=== PATIENT | female | born 1955 | race Caucasian/White ===

== ENCOUNTER 2020-12-18 07:05 | Outpatient (REF) | payer OTHER, SELFPAY ==
[2020-12-18 11:24] LABS: MANUAL DIFF FLAG NO
[2020-12-18 11:40] LABS: Basophils Percent Auto 0.8 % (0-2); Eosinophils Absolute Auto 0.2 X10*3/uL (0.0-0.4); Hematocrit 39.6 % (37-47); Hemoglobin 12.7 g/dl (12.0-16.0); Imm Gran Abs Auto 0.02 X10*3/uL (0.00-0.03); Imm Gran Pct Auto 0.4 % (0.0-0.4); Lymphocytes Absolute Auto 1.9 X10*3/uL (1.2-4.9); Mean Corpuscular HGB Conc 32.1 g/dl (31.0-35.0); Mean Corpuscular Hemoglobin 29.7 pg (27.0-33.0); Mean Corpuscular Volume 92.7 fL (80-98); Monocytes Absolute Auto 0.4 X10*3/uL (0.1-1.2); Monocytes Percent Auto 8.1 % (2-11); Neutrophils Absolute Auto 2.8 X10*3/uL (2.0-8.3); Neutrophils Percent Auto 51.7 % (45-73); Platelet Count 192 X10*3/uL (160-400); Red Blood Count 4.27 X10*6/uL (4.20-5.50); Red Cell Distribution Width 13.3 % (11.0-16.0); White Blood Count 5.3 X10*3/uL (4.8-10.8)
[2020-12-18 11:57] LABS: Alanine Aminotransferase 19 U/L (0-31); Anion Gap 11 (12-20); Aspartate Amino Transferase 22 U/L (5-31); Blood Urea Nitrogen 17 mg/dL (9-16); Calcium 9.4 mg/dL (8.4-10.2); Carbon Dioxide 27 mmol/L (22-29); Chloride 108 mmol/L (96-108); Cholesterol 196 mg/dL; Estimated Glomerular Filt Rate > 60; Glucose Fasting 74 mg/dL (60-99); HDL Cholesterol 58 mg/dL; LDL Cholesterol Calculated 121 mg/dl; Potassium 4.3 mmol/L (3.3-5.1); Sodium 142 mmol/L (135-145); Triglycerides 88 mg/dL
[2020-12-18 12:05] LABS: Vitamin D 25-OH Total 38.9 ng/mL (>30)
== END 2020-12-18 07:06 | disposition home or self-care (01) ==
LOC: HO.HMGCLDS 07:05
PROVIDERS: PCP Internal Medicine; Visit Provider Internal Medicine
DX: Z00.01 Encounter for general adult medical examination with abnormal findings (principal); I10 Essential (primary) hypertension
CPT/HCPCS: 36415; 80048; 80061; 82306; 84450; 84460; 85025

== ENCOUNTER 2021-05-11 08:14 | Outpatient (REF) | payer MEDICARE, SELFPAY ==
--- NOTE | ~2021-05-11 | MM_ITS ---
EXAMINATION: MM SCREENING DIGITAL BREAST TOMOSYNTHESIS, BILATERAL CLINICAL INFORMATION: Screening. Asymptomatic. The lifetime risk of breast cancer based on the Tyrer-Cuzick Model is 3.6%. COMPARISON: Mammography: March 26, 2020 and studies dating back to August 08, 2013 TECHNIQUE: Digital breast tomosynthesis is performed in both the craniocaudal and mediolateral oblique views along with computer-aided detection (CAD). Synthesized 2D images are generated from the tomosynthesis. FINDINGS: There are scattered areas of fibroglandular density (ACR BI-RADS breast composition Category b). There are no significant masses, abnormal calcifications, or other abnormalities. MM/MM tomosynthesis screening BI IMPRESSION: There are no significant changes from prior study. ASSESSMENT: BI-RADS 1: Negative RECOMMENDATION: Routine annual mammography screening. This patient's information was entered into a reminder system with a target due date for their next mammogram.
== END 2021-05-11 08:15 | disposition home or self-care (01) ==
LOC: HO.MAMMO 08:14
PROVIDERS: PCP Internal Medicine; Visit Provider Internal Medicine
DX: Z12.31 Encounter for screening mammogram for malignant neoplasm of breast (principal)
CPT/HCPCS: 77063; 77067

== ENCOUNTER 2022-06-07 08:46 | Outpatient (REF) | payer MEDICARE, SELFPAY ==
--- NOTE | ~2022-06-07 | MM_ITS ---
EXAMINATION: MM SCREENING DIGITAL BREAST TOMOSYNTHESIS, BILATERAL CLINICAL INFORMATION: Screening. Asymptomatic. The lifetime risk of breast cancer based on the Tyrer-Cuzick Model is 4%. COMPARISON: Mammography: 05/11/2021, 03/26/2020, 02/12/2019, 01/29/2018 TECHNIQUE: Digital breast tomosynthesis is performed in both the craniocaudal and mediolateral oblique views along with computer-aided detection (CAD). Synthesized 2D images are generated from the tomosynthesis. FINDINGS: There are scattered areas of fibroglandular density (ACR BI-RADS breast composition Category b). There are no significant masses, abnormal calcifications, or other abnormalities. Parenchymal pattern is similar to prior studies. There is no developing density or architectural abnormality. There are scattered bilateral predominantly vascular calcifications. The axilla and skin contours are unremarkable. No significant changes. MM/MM tomosynthesis screening BI IMPRESSION: No mammographic evidence of malignancy. ASSESSMENT: BI-RADS 1: Negative RECOMMENDATION: Routine annual mammography screening. This patient's information was entered into a reminder system with a target due date for their next mammogram.
== END 2022-06-07 08:47 | disposition home or self-care (01) ==
LOC: HO.MAMMO 08:46
PROVIDERS: PCP Internal Medicine; Visit Provider Internal Medicine
DX: Z12.31 Encounter for screening mammogram for malignant neoplasm of breast (principal)
CPT/HCPCS: 77063; 77067

== ENCOUNTER 2022-06-20 07:30 | Outpatient (REF) | payer MEDICARE, SELFPAY ==
[2022-06-20 12:29] LABS: Alanine Aminotransferase 22 U/L (0-31); Anion Gap 11 (12-20); Aspartate Amino Transferase 20 U/L (5-31); Blood Urea Nitrogen 12 mg/dL (9-16); Calcium 9.7 mg/dL (8.4-10.2); Carbon Dioxide 26 mmol/L (22-29); Chloride 107 mmol/L (96-108); Cholesterol 196 mg/dL; Estimated Glomerular Filt Rate > 60; Glucose Fasting 90 mg/dL (60-99); HDL Cholesterol 57 mg/dL; LDL Cholesterol Calculated 122 mg/dl; Potassium 4.3 mmol/L (3.3-5.1); Sodium 140 mmol/L (135-145); Triglycerides 88 mg/dL; Vitamin D 25-OH Total 37.8 ng/mL (>30)
== END 2022-06-20 07:31 | disposition home or self-care (01) ==
LOC: HO.HMGCLDS 07:30
PROVIDERS: PCP Internal Medicine; Visit Provider Internal Medicine
DX: I10 Essential (primary) hypertension (principal); M85.852 Other specified disorders of bone density and structure, left thigh; N95.9 Unspecified menopausal and perimenopausal disorder
CPT/HCPCS: 36415; 80048; 80061; 82306; 84450; 84460

== ENCOUNTER 2022-12-02 14:23 | Outpatient (REF) | payer MEDICARE, SELFPAY ==
--- NOTE | ~2022-12-02 | XR_ITS ---
EXAMINATION: XR CHEST CLINICAL INFORMATION: Cough COMPARISON: None available. TECHNIQUE: 2 views of the chest were obtained. FINDINGS: The cardiac and mediastinal contours are normal. The lungs are well inflated. There is question of bronchial wall thickening at the lung bases, particularly the right lung base. There is question of a small right lower lobe bronchopneumonia. Lungs are otherwise clear. No pleural effusion or pneumothorax. Degenerative changes of the spine and scoliosis. XR/XR chest 2V IMPRESSION: Bronchial wall thickening and question small right lower lobe bronchopneumonia
[2022-12-02 17:19] LABS: MANUAL DIFF FLAG NO
[2022-12-02 17:35] LABS: Basophils Absolute Auto 0.1 X10*3/uL (0.0-0.2); Basophils Percent Auto 0.5 % (0-2); Eosinophils Absolute Auto 0.1 X10*3/uL (0.0-0.4); Eosinophils Percent Auto 0.9 % (0-4); Hematocrit 37.6 % (37.0-47.0); Hemoglobin 12.2 g/dl (12.0-16.0); Imm Gran Abs Auto 0.13 X10*3/uL (0.00-0.03); Lymphocytes Absolute Auto 1.7 X10*3/uL (1.2-4.9); Lymphocytes Percent Auto 12.8 % (20-40); Mean Corpuscular HGB Conc 32.4 g/dl (31.0-35.0); Mean Corpuscular Hemoglobin 29.8 pg (27.0-33.0); Mean Corpuscular Volume 91.9 fL (80.0-98.0); Monocytes Absolute Auto 0.7 X10*3/uL (0.1-1.2); Monocytes Percent Auto 5.1 % (2-11); Neutrophils Absolute Auto 10.2 x10*3/uL (2.0-8.3); Neutrophils Percent Auto 79.7 % (45-73); Platelet Count 219 X10*3/uL (160-400); Red Blood Count 4.09 X10*6/uL (4.20-5.50); Red Cell Distribution Width 13.2 % (11.0-16.0); White Blood Count 12.9 X10*3/uL (4.8-10.8)
== END 2022-12-02 14:24 | disposition home or self-care (01) ==
LOC: HO.HMGCX 14:23
PROVIDERS: PCP Internal Medicine; Visit Provider Internal Medicine
DX: R05.8 Other specified cough (principal)
CPT/HCPCS: 36415; 71046; 85025

== ENCOUNTER 2023-01-04 06:59 | Outpatient (REF) | payer BC, SELFPAY | END 2023-01-04 07:00 | disposition home or self-care (01) | LOC: HO.HMGCLDS 06:59 | PROVIDERS: PCP Internal Medicine; Visit Provider Internal Medicine | DX: Z00.01 Encounter for general adult medical examination with abnormal findings (principal); I10 Essential (primary) hypertension; M85.852 Other specified disorders of bone density and structure, left thigh; Z86.2 Personal history of diseases of the blood and blood-forming organs and certain disorders involving the immune mechanism | CPT/HCPCS: 36415; 80048; 80061; 82306; 85025 ==

== ENCOUNTER 2023-06-20 08:49 | Outpatient (REF) | payer BC, SELFPAY | END 2023-06-20 08:50 | disposition home or self-care (01) | LOC: HO.MAMMO 08:49 | PROVIDERS: PCP Internal Medicine; Visit Provider Internal Medicine | DX: Z12.31 Encounter for screening mammogram for malignant neoplasm of breast (principal) | CPT/HCPCS: 77063; 77067 ==

== ENCOUNTER → 2023-06-20 09:15 | Outpatient (BNV) | payer BC, SELFPAY | PROVIDERS: PCP Internal Medicine; Visit Provider Radiology Diagnostic Radiology | DX: Z12.31 Encounter for screening mammogram for malignant neoplasm of breast (principal) | CPT/HCPCS: 77063; 77067 ==

== ENCOUNTER 2024-01-11 08:09 | Outpatient (AMB) | payer MEDICARE, SELFPAY ==
--- NOTE | 2024-01-11 08:14 | MHC.PC.OV ---
Vital Signs 01/11/24 08:21 01/11/24 09:14 Height 4 ft 10 in Weight 111 lb BMI 23.2 BP 156/80 H 135/75 Blood Pressure Location Lt brachial Lt brachial Position Sitting Sitting Pulse 91 Pulse Source Pulse Oximeter Pulse Oximetry (%) 99 Oxygen Delivery Method Room Air Intake Visit Reasons: PE Intake Note: Pt is here today for her PE: Last colonoscopy 04/08/19, mammogram 06/20/23 Allergies No Known Allergies [No Known Allergies*] Allergy (Verified 01/11/24 08:53) Medication List - Last Reconciled 01/11/24 by Racheal Millan MD benazepril 5 mg PO DAILY cholecalciferol (vitamin D3) 25 mcg PO DAILY Tobacco use date assessed: 01/11/24 Fall risk assessment: No Falls in past year Last assessed Fall Risk: 01/11/24 Dental Screening Dental Screen Date: 01/11/24 HPI PE HPI Details 69-year-old lady here today for physical exam. She is up-to-date with her screening mammogram, due again this year in June. She is up-to-date with her screening colonoscopy done by Dr. Beaver in 2019, with removal of 2 tubular adenoma polyps, due again this year. She had a screening for cervical cancer when she was 58 came back normal does not want to do any further testing. She has hypertension currently on benazepril, 5 mg daily. Blood pressure today is elevated, denies any chest pain shortness of breath, no lightheadedness, no nausea or vomiting. Patient states that she usually does not eat a lot of salty food, however she had dinner at [employer] last night and thinks that this might be causing her blood pressure despite. Home it has been running from between 116/60 to 130/70. [facility] Medical History (Updated 01/11/24 @ 09:16 by Racheal Millan MD) History of adenomatous polyp of colon Osteopenia of multiple sites Adenomatous polyp of colon Skin lesion of left lower extremity Productive cough Tubular adenoma of colon Osteopenia of left femoral neck Essential hypertension Annual visit for general adult medical examination with abnormal findings Surgical History History of laparoscopic cholecystectomy Hx of colonoscopy Social History Housing: House Alcohol intake: current Patient Tobacco Use Status: Never used Tobacco e-Cigarette/Vaping Use: Never Used Second Hand Smoke Exposure: Yes ( smokes cigars in the deck) service: No Current occupational status: retired Current occupational exposures/hazards: No Cognitive needs: No Hearing needs: No Vision needs: Yes Questionnaire PHQ-9 Over the last 2 weeks, how often have you been bothered by any of the following problems? 1. Little interest or pleasure in doing things: not at all 2. Feeling down, depressed, or hopeless: not at all 3. Trouble falling or staying asleep, or sleeping too much: not at all 4. Feeling tired or having little energy: not at all 5. Poor appetite or overeating: not at all 6. Feeling bad about yourself - or that you are a failure or have let yourself or your family down: not at all 7. Trouble concentrating on things, such as reading the newspaper or watching television: not at all 8. Moving or speaking so slowly that other people could have noticed. Or the opposite - being so fidgety or restless that you have been moving around a lot more than usual: not at all 9. Thoughts that you would be better off or of hurting yourself in some way: not at all Total score: 0 Depression Screening Interpretation: Negative Depression Screening Done: Yes 06299 - PHQ-9 Billing: Yes Source: Developed by Drs. Justo Warren, Cornelia Harrington, Juan Garsia and colleagues, with an educational gisell from [employer]. Thrive Questionnaire Date Thrive assessed: 01/11/24 I am a: Patient What is your living situation today?: I have a steady place to live Within the past 12 months, did the food you bought not last and you didn't have the money to get more?: Never true Within the past 12 months, did you worry whether your food would run out before you got money to buy more?: Never true Do you have trouble paying for medicines?: No Do you have trouble getting transportation to medical appointments?: No Do you have trouble paying your heating and electricity bill?: No Do you have trouble taking care of your child, family member or friend?: No Do you have trouble with day-to-day activities such as bathing, preparing meals, shopping, managing finances, etc.?: No Are you currently unemployed and looking for a job?: No Are you interested in more education?: No THRIVE Score: 0 AUDIT C Alcohol Use Questionnaire (AUDIT-C) 1. How often do you have a drink containing alcohol?: Monthly or less 2. How many drinks containing alcohol do you have on a typical day when you are drinking?: 1 or 2 3. How often do you have six or more drinks on one occasion?: Never Total Score: 1 SHEEBA-7 AMB Questionnaire SHEEAB-7 Date SHEEBA - 7 assessed: 01/11/24 Feeling nervous, anxious, or on edge: 0 = Not at all Not being able to stop or control worryin = Not at all Worrying too much about different things: 0 = Not at all Trouble relaxin = Not at all Being so restless that it is hard to sit still: 0 = Not at all Becoming easily annoyed or irritable: 0 = Not at all Feeling afraid as if something awful might happen: 0 = Not at all Total SHEEBA-7 score (0-4 normal; 5-9 mild; 10-14 moderate; 15-21 severe): 0 Source: Developed by Drs. Justo Warren, Cornelia Harrington, Juan Garsia and colleagues, with an educational gisell from [employer]. SHEEBA-7 Assessment Billing SHEEBA-7 Assessment Tool: SHEEBA-7 Assessment 18691 Review of Systems Const Reports no additional complaints Eyes Details: Sees [facility] Reports requires corrective lenses ENT Denies hoarseness, Denies epistaxis, Denies nasal congestion, Denies post nasal drip and Denies sore throat Card Denies dyspnea and Denies dyspnea on exertion Resp Reports as per HPI, Denies pain on inspiration, Denies dyspnea and Denies dyspnea on exertion GI Denies abdominal pain, Denies melena, Denies hematochezia, Denies change in bowel habits, Denies heartburn and Denies nausea Denies hematuria, Denies dysuria, Denies urinary incontinence and Denies urinary hesitancy Musc Denies back pain, Denies myalgias, Denies arthralgias, Denies joint swelling, Denies muscle cramps and Denies muscle weakness Skin/Breast Details: Sees [facility] Denies breast pain, Denies breast mass and Denies rash Neuro Reports no additional complaints Psych Reports no additional complaints Endo Reports no additional complaints Michele/Lymph Reports no additional complaints Aller/Immun Reports no additional complaints Physical exam (Primary Care) Vital Signs: Last Vital Signs Pulse 91 01/11/24 08:21 BP 135/75 01/11/24 09:14 Pulse Ox 99 01/11/24 08:21 Oxygen Delivery Method Room Air 01/11/24 08:21 BMI result Body Mass Index 23.2 Tobacco/Smoking Status: Tobacco use Status Tobacco use date assessed 01/11/24 01/11/24 08:18 Patient Tobacco Use Status Never used Tobacco 01/11/24 08:18 e-Cigarette/Vaping Use Never Used 01/11/24 08:18 PHQ-9: PHQ-9 Score PHQ-9: Total score 0 01/11/24 09:23 Depression Screening Interpretation: Negative Thrive Assessment: Date of Thrive Assessment Date Thrive assessed 01/11/24 01/11/24 08:27 Const General: no acute distress Orientation/consciousness: patient oriented x3 HENMT Ears: external ears normal, TM's normal bilaterally and EAC's normal General nose exam: Normal external nose present, Normal nasal mucous membranes and turbinates present and No nasal discharge present Face and sinus: Yes sinuses nontender and Yes face symmetric Mouth: oropharynx normal and moist mucous membranes Eyes Conjunctivae: conjunctivae normal Sclerae: sclerae normal Pupils: Equal, round and reactive pupils present EOM: EOMs intact bilaterally Neck Neck: Yes full ROM and Yes no lymphadenopathy Chest Chest palpation & inspection: normal inspection of the chest Breast/axilla inspection: normal inspection of the breasts Breast/axilla palpation: normal palpation of the breasts Resp Effort & Inspection: normal respiratory effort and able to speak in complete sentences Auscultation: clear to auscultation bilaterally Cardio Jugular venous distension: no JVD Rate: regular rate Rhythm: regular rhythm Heart sounds: S1 normal heart sound present and S2 normal heart sound present GI Inspection: Yes normal to inspection Palpation (GI): Soft to palpation Auscultation: normal bowel sounds General: Yes deferred (Goes to her OB at [facility]) Back/Spine/Pelvis Back: No back tenderness Skin Other: Bui macular lesion on lateral aspect of left lower leg just below-knee Neuro General: patient oriented x3, gait normal, moves all extremities, no focal motor deficits and CN's II-XI intact bilaterally Cranial nerves: Yes Equal, round and reactive pupils present Cognition (Neuro): normal cognition Extrem General: Yes full ROM, Yes no joint enlargement, Yes no clubbing, cyanosis or edema and Yes normal gait Psych Appearance: grossly normal and well kempt Mental Status: mental status grossly normal Speech and movement: Normal speech and movement present Affect: normal affect Thought process: Normal thought process present Thought content: Normal thought content present Assessment and Plan Assessment & Plan (1) Annual visit for general adult medical examination with abnormal findings: Code(s): Z00.01 - Encounter for general adult medical examination with abnormal findings Plan: Will check appropriate labs. Continue with regular dental visit, goes every 6 months and regular eye exams, goes to [facility]. Take adequate calcium in diet and vitamin-D 3 at 2000 IU per cap once a day, in addition to weight-bearing exercises to help maintain good muscle tone and weight control. Instructed to do self-breast exam, and continue with yearly mammogram, referral ordered. Has osteopenia in multiple sites, will refer for a repeat bone density scan this year. She is up-to-date with all her vaccines, but has not yet had RSV vaccine (2) Adenomatous polyp of colon: Code(s): D12.6 - Benign neoplasm of colon, unspecified Plan: Referred back to see Dr. Beaver for her a repeat screening colonoscopy, due this year (3) Essential hypertension: Code(s): I10 - Essential (primary) hypertension Plan: Insert hypertension, blood pressure has been running within normal limits at home currently on benazepril 5 mg once a day. She has been adhering to a low-salt diet and exercises regularly. Blood pressure however was elevated on today's visit this morning, patient attributes it to having had a meal at [employer] last night. Advised to check her blood pressure at home and call if it is persistently going higher than 130/80 (4) Osteopenia of multiple sites: Code(s): M85.89 - Other specified disorders of bone density and structure, multiple sites Plan: Repeat bone density scan ordered, to be done together with her screening mammogram later this year. Forced importance of doing regular weight-bearing exercise, taking adequate calcium from dietary sources and taking her vitamin-D 3 supplements at least 3206-6170 units daily Orders: Orders Vitamin D 25-OH Total 01/11/24 D12.6 - Benign neoplasm of colon, unspecified, I10 - Essential (primary) hypertension, M85.852 - Other specified disorders of bone density and structure, left thigh Lipid Panel 01/11/24 D12.6 - Benign neoplasm of colon, unspecified, I10 - Essential (primary) hypertension, M85.852 - Other specified disorders of bone density and structure, left thigh Alanine Aminotransferase 01/11/24 D12.6 - Benign neoplasm of colon, unspecified, I10 - Essential (primary) hypertension, M85.852 - Other specified disorders of bone density and structure, left thigh Aspartate Amino Transferase 01/11/24 D12.6 - Benign neoplasm of colon, unspecified, I10 - Essential (primary) hypertension, M85.852 - Other specified disorders of bone density and structure, left thigh MM tomosynthesis screening BI 01/11/24 M85.89 - Other specified disorders of bone density and structure, multiple sites, Z12.31 - Encounter for screening mammogram for malignant neoplasm of breast Hemoglobin and Hematocrit 01/11/24 D12.6 - Benign neoplasm of colon, unspecified, I10 - Essential (primary) hypertension, M85.852 - Other specified disorders of bone density and structure, left thigh Basic Metabolic Panel Fasting 01/11/24 D12.6 - Benign neoplasm of colon, unspecified, I10 - Essential (primary) hypertension, M85.852 - Other specified disorders of bone density and structure, left thigh Vitamin B12 and Folate 01/11/24 Z00.01 - Encounter for general adult medical examination with abnormal findings XR DEXA axial skeleton 01/11/24 M85.89 - Other specified disorders of bone density and structure, multiple sites, Z12.31 - Encounter for screening mammogram for malignant neoplasm of breast Referrals Gastroenterology Referral D12.6 - Benign neoplasm of colon, unspecified Coding Level of Care Code Est Pt Prev Care >65y(49200) Diagnoses Annual visit for general adult medical examination with abnormal findings Z00.01 Adenomatous polyp of colon D12.6 Essential hypertension I10 Osteopenia of multiple sites M85.89 Additional Codes SHEEBA-7 Assessment Billing - SHEEBA-7 Assessment Tool: SHEEBA-7 Assessment 04917 ([id number])
[2024-01-11 08:21] VITALS: BP 156/80; PULSE 91; O2SAT 99; BMI 23.2
[2024-01-11 09:14] VITALS: BP 135/75
== END 2024-01-11 09:19 | disposition home or self-care (01) ==
PROVIDERS: PCP Internal Medicine; Visit Provider Internal Medicine
DX: Z00.00 Encounter for general adult medical examination without abnormal findings (principal); D12.6 Benign neoplasm of colon, unspecified; I10 Essential (primary) hypertension; M85.89 Other specified disorders of bone density and structure, multiple sites
CPT/HCPCS: 99397

== ENCOUNTER 2024-01-16 06:54 | Outpatient (REF) | payer MEDICARE, SELFPAY ==
[2024-01-16 10:33] LABS: Hematocrit 40.5 % (37.0-47.0); Hemoglobin 13.4 g/dl (12.0-16.0)
[2024-01-16 10:46] LABS: Alanine Aminotransferase 13 U/L (0-31); Anion Gap 13 (12-20); Aspartate Amino Transferase 17 U/L (5-31); Blood Urea Nitrogen 12 mg/dL (9-16); Calcium 10.4 mg/dL (8.4-10.2); Carbon Dioxide 25 mmol/L (22-29); Chloride 106 mmol/L (96-108); Cholesterol 198 mg/dL (<200); Estimated Glomerular Filt Rate > 60; Glucose Fasting 86 mg/dL (60-99); HDL Cholesterol 64 mg/dL (>40); LDL Cholesterol Calculated 118 mg/dL (<100); Potassium 4.2 mmol/L (3.3-5.1); Sodium 140 mmol/L (135-145); Triglycerides 83 mg/dL (<150)
[2024-01-16 11:04] LABS: Vitamin D 25-OH Total 60.7 ng/mL (>30)
[2024-01-16 11:23] LABS: Folate 8.1 ng/mL (> or = 4.0); Vitamin B12 251 pg/mL (200-900)
== END 2024-01-16 06:55 | disposition home or self-care (01) ==
LOC: HO.HMGCLDS 06:54
PROVIDERS: PCP Internal Medicine; Visit Provider Internal Medicine
DX: Z00.01 Encounter for general adult medical examination with abnormal findings (principal); D12.6 Benign neoplasm of colon, unspecified; M85.852 Other specified disorders of bone density and structure, left thigh; I10 Essential (primary) hypertension
CPT/HCPCS: 36415; 80048; 80061; 82306; 82607; 82746; 84450; 84460; 85014; 85018

== ENCOUNTER 2024-07-09 09:21 | Outpatient (REF) | payer MEDICARE, SELFPAY ==
--- NOTE | ~2024-07-09 | MM_ITS ---
EXAMINATION: Dual-Energy X-ray Absorptiometry - Bone Density Study HISTORY: Estrogen deficiency TECHNIQUE: [employer] Interactive Dual energy absorptiometry (DEXA) of the lumbar spine, total left hip, and femoral neck was performed. COMPARISON: Comparison is made with the prior examination dated 02/12/2019. FINDINGS: The bone mineral density of the lumbar spine is 0.974 with a T-score of -1.7, and a Z-score of 0.4. This represents a BMD change of -2.6% compared to the prior exam. This is not statistically significant. The bone mineral density of the left total hip is 0.913 with a T-score of -0.7, and a Z-score of 1.0. This represents BMD change of -3.5% compared to the prior exam. This is not statistically significant. The bone mineral density of the left femoral neck is 0.819 with a T-score of -1.6, and a Z-score of 0.3. This represents BMD change of -5.0% compared to the prior exam. FRACTURE RISK: The FRAX index suggests a ten year probability of major osteoporotic fracture of 9.6%, and of hip fracture 1.4%. MM/XR DEXA axial skeleton IMPRESSION: Based on bone mineral density, and according to World Health Organization (WHO) criteria, the diagnosis is consistent with osteopenia. All bone density values are in grams per centimeter squared. At this facility, the least significant change in BMD with 95% confidence is 0.022 at the lumbar spine, 0.027 at the hip, and 0.023 at the distal 1/3 radius. Electronically signed by: Justo Ruffin MD 07/10/2024 09:39 AM [facility]
--- NOTE | ~2024-07-09 | MM_ITS ---
EXAMINATION: MM SCREENING DIGITAL BREAST TOMOSYNTHESIS, BILATERAL CLINICAL INFORMATION: Screening. Asymptomatic. COMPARISON: Mammography: Comparison is made with available priors TECHNIQUE: Digital breast mammography with tomosynthesis is performed in both the craniocaudal and mediolateral oblique views along with computer-aided detection (CAD). FINDINGS: There are scattered areas of fibroglandular density (ACR BI-RADS breast composition Category b). There are no significant masses, abnormal calcifications, or other abnormalities. MM/MM tomosynthesis screening BI IMPRESSION: No mammographic evidence of malignancy. ASSESSMENT: BI-RADS BI-RADS 1 - Negative RECOMMENDATION: Routine annual mammography screening. 1 year F/U This examination should not preclude the clinical evaluation of a suspicious palpable abnormality. This patient's information was entered into a reminder system with a target due date for their next mammogram. Electronically signed by: Marley Grullon DO 07/15/2024 03:48 PM [facility]
--- OUTSIDE RECORDS SUMMARY | 2024-07-09 09:33 | XMS_ITS ---
Author Organization [facility] Address [address] [place] [address] Care Team Providers Care Hot Baller Name Role Phone Yana WILSON, Racheal Primary Care Provider Justo Be [phone] REASON FOR VISIT Please update insurance information Encounters Encounter Location Date Provider Diagnosis [facility] [address] [place] [address] 04/29/2024 Justo Beaver PLAN OF TREATMENT Next Appt Details Provider Name:Justo Beaver , 10/03/2024 10:20:00 AM, [address], [address], [place], [address],
--- OUTSIDE RECORDS SUMMARY | 2024-07-09 09:33 | XMS_ITS ---
Author Organization [facility] Address [address] [place] [address] Care Team Providers Care Boilermaker Pipe Fitter Name Role Phone Yana WILSON, Racheal Primary Care Provider Justo Be [facility] [phone] REASON FOR VISIT Patient presents today for a recall colonoscopy Encounters Encounter Location Date Provider Diagnosis [facility] [address] [place] [address] [place] [phone] 06/11/2024 Justo Beaver PLAN OF TREATMENT Next Appt Details Provider Name:Justo Beaver , 10/03/2024 10:20:00 AM, [address], [address], [place], [address],
--- OUTSIDE RECORDS SUMMARY | 2024-07-09 09:33 | XMS_ITS | Patient Health Record ---
Author Organization [facility] Address [address] [place] [address] Care Team Providers Care Siding Mechanic Name Role Phone Yana WILSON, Racheal Primary Care Provider Justo Be [phone] REASON FOR REFERRAL No Information MEDICATIONS Medication SIG (Take, Route, Fr equency, Duration) Notes Start Date End Date Status Vitamin D3 1000 UNIT 1 capsule Orally On ce a day for 30 day(s) Active Lotensin 10 MG 1 tablet Orally Once a day for 30 day(s) Active IMMUNIZATIONS Vaccine Route Administration Date Status Comme nts Influenza Unknown 04/19/2018 Administered SOCIAL HISTORY Tobacco Use: Social History Observation Description Date Details (start date - stop date) Never Smoker NA - NA Sex Assigned At : Social History Observation Description Sex Assigned At Unknown Tobacco Use/Smoking Question Answer Notes Patient is a nonsmoker Alcohol Screen Question Answer Notes Did you have a drink contain ing alcohol in the past year? Yes How often did you have a dri nk containing alcohol in the past year? 4 or more times a week (4 points) How many drinks did you have on a typical day when you were drinking in the past year? 1 or 2 drinks (0 point) How often did you have 6 or more drinks on one occasion in the past year? Never (0 point) Points 4 Interpretation Positive PROBLEMS Problem Type ICD Code Onset Dates Problem Status W/U Status Risk SNOMED Code Notes Problem Encounter for screening for malignant neoplasm of colon (Z12.11) Active confirmed 289309114 Problem Preprocedural examination (Z01.818) Active confirmed [id number] Encounters Encounter Location Date Provider Diagnosis [facility] [address] [place] [phone] 06/11/2024 Justo Beaver [facility] [address] [place] [address] 04/29/2024 Justo Beaver PLAN OF TREATMENT Future Test Test Name Order Date COLONOSCOPY 03/12/2019 Next Appt Details Provider Name:Justo Beaver , 10/03/2024 10:20:00 AM, [address], [address], [place], [address], Insurance Providers Payer Name Payer Address Payer Phone Subscriber Number Group Number Insured Name Patient Relationship to Insured Coverage Start Date Coverage End Date [facility] [address] [place] [address] [phone] [id number] NUVIA TEJEDA Self - patient is the insured MEDICAL (GENERAL) HISTORY Medical History History ICD Code Denies NV,DM,CVA,Lung disease,renal dise ase Hypertension Neg. screening colonoscopy in 07/2007 Surgical History Surgery Date(Month/Year) cholecystectomy section x 2
== END 2024-07-09 09:22 | disposition home or self-care (01) ==
LOC: HO.MAMMO 09:21
PROVIDERS: PCP Internal Medicine; Visit Provider Internal Medicine
DX: Z12.31 Encounter for screening mammogram for malignant neoplasm of breast (principal); M85.89 Other specified disorders of bone density and structure, multiple sites
CPT/HCPCS: 77063; 77067; 77080

== ENCOUNTER → 2024-07-09 10:00 | Outpatient (BNV) | payer MEDICARE, SELFPAY | PROVIDERS: PCP Internal Medicine; Visit Provider Radiology Diagnostic Radiology | DX: Z12.31 Encounter for screening mammogram for malignant neoplasm of breast (principal) | CPT/HCPCS: 77063; 77067 ==

== ENCOUNTER 2025-01-15 06:20 | Day surgery (SDC) | payer MEDICARE, SELFPAY ==
--- OUTSIDE RECORDS SUMMARY | 2024-12-10 17:27 | XMS_ITS ---
Author Organization [facility] Address [address] [place] [id number] Care Team Providers Care Sales Associate Name Role Phone Yana WILSON, Racheal Primary Care Provider Justo Be [phone] REASON FOR VISIT Patient presents today for a recall colonoscopy Encounters Encounter Location Date Provider Diagnosis [facility] [address] [address] 06/11/2024 Justo Beaver Plan Of Treatment Next Appt Details Provider Name:Justo Beaver , 01/15/2025 07:30:00 AM, [address] [place] [address], [id number], Progress Notes * NUVIA TEJEDA LDOB:1954 (69 yo F)Acc No.[id number]:06/11/2024 Progress Notes Patient:?NUVIA TEJEDA Provider:?Justo Beaver MD :1955???Age:69 Y???Sex:Female D ate:06/11/2024 Address:[address] [place], [place] [id number] Pcp:Racheal Millan MD Subjective: * Chief Complaints: * ???1. Patient presents today for a recall colonoscopy. * Medical History:? Objective: * Vitals:? Assessment: Plan: * Treatment: * * The named appointment provid er may or may not be the originator of this progress note, and it is not deemed complete until electronically signed by the appointment provider. Sign off status: Pending * Provider:?Justo Beaver MD Date:? 024 Generated for Ada jones/Kathryn/Derrek on:?12/10/2024 05:27 PM EDT
[2025-01-10 14:51] VITALS: BMI 22.2
--- NOTE | 2025-01-14 09:37 | HO.ANESPROP2 ---
Documented by User: Christine Concepcion NP 01/14/25 09:38 HPI - Anesthesia Eval Consult details Narrative: 70yo F for Colonoscopy PMFSH Active Problems Active Problems: All Active Problems History of adenomatous polyp of colon (Acute) Skin lesion of left lower extremity (Acute) Annual visit for general adult medical examination with abnormal findings (Acute) Osteopenia of multiple sites (Acute) Essential hypertension (Acute) Past Medical History Medical History Osteopenia of multiple sites Tubular adenoma of colon Essential hypertension Surgical History Surgical History Hx of section History of laparoscopic cholecystectomy Hx of colonoscopy Social History Social History (Updated 01/10/25 @ 14:52 by Char Banerjee RN) Household Members: Spouse Housing: House Are you a primary behavioral health care coordinator to a significant other at home: No Do you presently have visiting nurse or other home services: No Alcohol intake: current Patient Tobacco Use Status: Never used Tobacco e-Cigarette/Vaping Use: Never Used Second Hand Smoke Exposure: Yes ( smokes cigars in the deck) Use of substances other than those prescribed or required for medical reasons: No Have you been hit, kicked, punched, or otherwise hurt by someone within the past year? If so, by whom?: No Are you DNR?: No Advance Directives: No Advance Directives Information Provided: Yes Advance Directives on File: No Patient : No service: No Current occupational status: retired Current occupational exposures/hazards: No Cognitive needs: No Hearing needs: No Vision needs: Yes Meds Allergies Allergy/AdvReac Type Severity Reaction Status Date / Time No Known Allergies (No Known Allergy Verified 01/11/24 08:53 Allergies*) Home Medications ?Medication ?Instructions ?Recorded ?Confirmed ?Last Taken ?Type cholecalciferol (vitamin D3) 25 25 mcg PO DAILY 12/17/20 01/10/25 Unknown History mcg (1,000 unit) capsule benazepril 5 mg tablet 10 mg PO DAILY 01/10/25 01/10/25 Unknown History Exam Height,Weight and Vital Signs: Height 4 ft 11 in Weight 49.895 kg Assessment and Plan Assessment Anesthesia Assessment: Chart Reviewed Documented by User: Sergei Puente MD 01/15/25 07:00 PMFSH Past Medical History Medical History Osteopenia of multiple sites Tubular adenoma of colon Essential hypertension Functional capacity: independent ambulation Patient : No Family History Family history of problems with anesthesia: No Surgical History Surgical History Hx of section History of laparoscopic cholecystectomy Hx of colonoscopy History of Problems with Anesthesia: No Social History Social History (Updated 01/10/25 @ 14:52 by Char Banerjee RN) Household Members: Spouse Housing: House Are you a primary behavioral health care coordinator to a significant other at home: No Do you presently have visiting nurse or other home services: No Alcohol intake: current Patient Tobacco Use Status: Never used Tobacco e-Cigarette/Vaping Use: Never Used Second Hand Smoke Exposure: Yes ( smokes cigars in the deck) Use of substances other than those prescribed or required for medical reasons: No Have you been hit, kicked, punched, or otherwise hurt by someone within the past year? If so, by whom?: No Are you DNR?: No Advance Directives: No Advance Directives Information Provided: Yes Advance Directives on File: No Patient : No service: No Current occupational status: retired Current occupational exposures/hazards: No Cognitive needs: No Hearing needs: No Vision needs: Yes Meds Allergies Allergy/AdvReac Type Severity Reaction Status Date / Time No Known Allergies (No Known Allergy Verified 01/11/24 08:53 Allergies*) Home Medications ?Medication ?Instructions ?Recorded ?Confirmed ?Last Taken ?Type cholecalciferol (vitamin D3) 25 25 mcg PO DAILY 12/17/20 01/10/25 Unknown History mcg (1,000 unit) capsule benazepril 5 mg tablet 10 mg PO DAILY 01/10/25 01/10/25 Unknown History Exam Exam Date and Time: 01/15/2025 Airway Loose/Missing/Broken Teeth: No Heart: rrr Lungs: cta Other: normal healthy patient Assessment and Plan Final Anesthetic Review Family History of Problems with Anesthesia: No History of Problems with Anesthesia: No NPO: Yes ASA Class: II Final Preanesthetic Review: No Changes in Pt Med Stat, Meds/Allgs Chart Reviewed, Consent Obtained/Reviewed and Anes Risks/Benef Reviewed Patient Risk: Low Procedure Risk: Low Anesthetic Plan Anesthetic Plan: MAC: Disposition: Standard PACU
[2025-01-15 06:27] VITALS: BMI 22.4
[2025-01-15 06:34] VITALS: BP 164/87; PULSE 89; RESP 16; TEMP 36.2; O2SAT 99
[2025-01-15] MEDS: Lactated Ringers 1,000 ML 100 ML IVCONT (06:49)
[2025-01-15 08:30] VITALS: BP 110/56; PULSE 65; RESP 16; TEMP 36.6; O2SAT 100
--- NOTE | 2025-01-15 08:33 | PM.OP ---
Brief Operative Note Date of Service: 01/15/25 Pre-op diagnosis: Screening Post-op diagnosis: other (Colon polyps) Procedure: Colonoscopy to the cecum with bx/removal of polyps Surgeon: Justo Beaver MD Anesthesia: MAC Was an Geomorphologist used for this Procedure?: No Estimated blood loss (mL): 2.0 Pathology: other (A. Polyp at 50cm B. Polyp at 40cm) Condition: stable Disposition: PACU
--- NOTE | 2025-01-15 08:52 | OP_ITS ---
DATE OF SERVICE: 01/15/2025 SURGEON: Justo Beaver MD INDICATIONS: The patient presents for evaluation of colorectal cancer screening and personal history of tubular adenomas of the colon. Full consent was obtained from her for this, including risks of bleeding and perforation. PREOPERATIVE DIAGNOSIS: POSTOPERATIVE DIAGNOSIS: PROCEDURE PERFORMED: Colonoscopy to cecum with biopsy and removal of polyps. ESTIMATED BLOOD LOSS: COMPLICATIONS: ANESTHESIA: Monitored anesthesia care. ASSISTANTS: SPECIMENS: PREOPERATIVE DIAGNOSES: Colorectal cancer screening and personal history of tubular adenomas of the colon. POSTOPERATIVE DIAGNOSES: Colorectal cancer screening and personal history of tubular adenomas of the colon, small colon polyps, diverticulosis, and internal hemorrhoids. DESCRIPTION OF PROCEDURE: The patient was placed in the left lateral decubitus position. The digital rectal exam revealed no abnormalities. The Olympus video pediatric colonoscope was entered into the rectum and advanced easily to the cecum. Once in the cecum, I did identify normal-appearing cecal pouch with appendiceal orifice and a normal-appearing ileocecal valve. The entire cecum and ileocecal valve appeared normal. Scope was slowly withdrawn assessing all mucosal surfaces carefully. Preparation was excellent. At 40 cm and at 50 cm were flat, less than 5 mm polyps, both of which were biopsied and completely removed with cold biopsy forceps. I did not visualize any other polyps, colitis, nor angiodysplasia. There was a mild amount of sigmoid diverticulosis. In the rectum, scope was retroflexed visualizing internal hemorrhoids, but no other pathology. The rectal mucosa appeared normal. The scope was straightened and withdrawn from the patient. She tolerated the procedure well and was returned to recovery area in stable condition. IMPRESSION: 1. Small colon polyps. 2. Diverticulosis. 3. Internal hemorrhoids. PLAN: The results of biopsy will be checked. I would recommend a repeat colonoscopy in 5 years for further surveillance. She will otherwise see me on a p.r.n. basis. Justo Beaver MD RMW/JUANITOL / [phone]
== END 2025-01-15 09:06 | disposition home or self-care (01) ==
PROVIDERS: PCP Internal Medicine; Visit Provider Internal Medicine
PROC: 0DJD8ZZ Inspection of Lower Intestinal Tract, Via Natural or Artificial Opening Endoscopic (ICD-10-PCS; CPT 45378; principal; 2025-01-15 07:30)
DX: Z12.11 Encounter for screening for malignant neoplasm of colon (principal); Z86.0101 Personal history of adenomatous and serrated colon polyps; Z80.0 Family history of malignant neoplasm of digestive organs; D12.5 Benign neoplasm of sigmoid colon; K57.30 Diverticulosis of large intestine without perforation or abscess without bleeding; K64.8 Other hemorrhoids; I10 Essential (primary) hypertension; Z79.899 Other long term (current) drug therapy; Z90.49 Acquired absence of other specified parts of digestive tract
CPT/HCPCS: 45380; 88305; J2704

== ENCOUNTER 2025-02-28 08:55 | Outpatient (AMB) | payer MEDICARE, SELFPAY ==
--- OUTSIDE RECORDS SUMMARY | 2024-06-11 06:10 | XMS_ITS ---
Author Organization [facility] Address [address] [place] [address] Care Team Providers Care Electric Motor Controls Assembler Name Role Phone Yana WILSON, Racheal Primary Care Provider Justo Be [phone] REASON FOR VISIT Patient presents today for a recall colonoscopy Encounters Encounter Location Date Provider Diagnosis [facility] [address] [address] 06/11/2024 Justo Beaver Plan Of Treatment No Information Progress Notes * NUVIA TEJEDA LDOB:1954 (70 yo F)Acc No.[id number]:06/11/2024 Progress Notes Patient: NUVIA CARUSO Provider: Tim Beaver MD :1955 A ge:69 Y S ex:Female Date:06/11/2024 Address:[address] [place], [place] [id number] Pcp:Racheal Millan MD Subjective: * Chief Complaints: * 1 . Patient presents today for a recall colonoscopy. * Medical History: Objective: * Vitals: Assessment: Plan: * Treatment: * * The named appointment provid er may or may not be the originator of this progress note, and it is not deemed complete until electronically signed by the appointment provider. Sign off status: Pending * Provider: Tim Beaver MD Date: 1 08/12/2023 Generated for Printi ng/Faxing/eTransmitting on: 0 02/28/2025 09:44 AM EDT
--- OUTSIDE RECORDS SUMMARY | 2025-01-15 03:30 | XMS_ITS ---
Author Organization [facility] Address [address] [place] [phone] Care Team Providers Care Cinder Crew Worker Name Role Phone Yana WILSON, Racheal Primary Care Provider Justo Be [phone] REASON FOR VISIT screening,hx polyps Encounters Encounter Location Date Provider [place] [facility] [place] [address] [place] [phone] 01/15/2025 Justo Beaver Plan Of Treatment No Information Progress Notes * NUVIA TEJEDA LDOB:1954 (70 yo F)Acc No.[id number]:01/15/2025 COLON WITH MAC Patient: NUVIA CARUSO Provider: Tim Beaver MD :1955 A ge:70 Y S ex:Female Date:01/15/2025 Address:[address] [place], [place] [phone] Pcp:Racheal Millan MD Subjective: * Chief Complaints: [...] Beaver MD Date: 0 01/15/2025 Generated for Anai ng/Faxing/eTransmitting on: 02/28/2025 09:45 AM EDT
[2025-02-28 09:21] VITALS: BP 152/56; PULSE 86; TEMP 36.7; O2SAT 98; BMI 22.4
--- NOTE | 2025-02-28 09:21 | AM.OFFWIN_ITS ---
Intake Vital Signs 02/28/25 09:21 Height 4 ft 11 in Weight 111 lb BMI 22.4 BP 152/56 H Blood Pressure Location Rt brachial Position Sitting Pulse 86 Pulse Source Pulse Oximeter Temp 98.1 F Temp Source Oral Pulse Oximetry (%) 98 Oxygen Delivery Method Room Air Intake Visit Reasons: EP bee sting few days ago, swelling/red Intake Note: pt presents with left forearm swelling, redness and itchiness s/p bee sting 2 days ago Patient Tobacco Use Status: Never used Tobacco Allergies No Known Allergies (No Known Allergies*) Allergy (Verified 02/28/25 09:21) Do you need a note to return to daycare/school/sports/work: No HPI HPI Comments History of Present Illness Details History of Present Illness - The patient is a 70-year-old female pr esenting with a bee sting on the left forearm. - The bee sting occurred on Monday ni [facility], and today is Monday. - The patient has not taken any medicati on for the sting, such as Benadryl. - The area is red, swollen, and warm. - The patient has experienced three bee stings in the past three to four years, with increasing severity. - The patient has no history of throat s welling, wheezing, or other systemic allergic reactions. Physical Exam General: Cooperative, healthy appearing, comfortable, no acute distress and well developed Orientation: Patient oriented x3 Limitations: No limitations Head: Normal to inspection Ears: Hearing grossly normal bilaterally Nose: Normal External nose present Face and sinus: Normal facial exam Eyes: Appearance normal, both eyes and all related structures Neck: Normal visual inspection and Yes full ROM Respiratory: Normal respiratory effort and able to speak in complete sentences. Skin: erythema, edema and warmth noted on the left forearm Neuro: Patient oriented x3 Extremities: moving all extremities normally PFSH Medical History (Updated 02/28/25 @ 09:46 by Caryl May PA-C) Osteopenia of multiple sites Tubular adenoma of colon Essential hypertension Surgical History Hx of section History of laparoscopic cholecystectomy Hx of colonoscopy Social History (Updated 01/10/25 @ 14:52 by Char Banerjee RN) Household Members: Spouse Housing: House Are you a primary child care aide to a significant other at home: No Do you presently have visiting nurse or other home services: No Alcohol intake: current Patient Tobacco Use Status: Never used Tobacco e-Cigarette/Vaping Use: Never Used Second Hand Smoke Exposure: Yes ( smokes cigars in the deck) service: No Current occupational status: retired Current occupational exposures/hazards: No Cognitive needs: No Hearing needs: No Vision needs: Yes Review of Systems Const All systems reviewed & are unremarkable except as noted in HPI and below Physical Exam Vital Signs: Last Vital Signs Temp 98.1 F 02/28/25 09:21 Pulse 86 02/28/25 09:21 BP 152/56 H 02/28/25 09:21 Pulse Ox 98 02/28/25 09:21 Oxygen Delivery Method Room Air 02/28/25 09:21 BMI result Body Mass Index 22.4 Assessment & Plan Assessment & Plan (1) Bee sting reaction: Code(s): T63.441A - Toxic effect of venom of bees, accidental (unintentional), initial encounter Qualifiers: Encounter type: initial encounter Injury intent: accidental or unintentional Qualified Code(s): T63.441A - Toxic effect of venom of bees, accidental (unintentional), initial encounter Plan: Patient was informed and verbally consented to the use of an ambient scribe for clinic note documentation during this visit. Bee Sting - Initiate treatment with [id number] Benadryl and Pepcid to manage symptoms. - Monitor the area for 72 hours; if redness, warmth and swelling persist or worsen, consider starting antibiotics for possible cellulitis. I have called in a RX as there is a holiday weekend upcoming. She can pick it up if she needs it. - Aidan the area to track the progression of redness and swelling. - Educated pt on the use of Epi-Pen as each time she gets a sting, her symptoms are getting worse. Can do allergy testing as well, should follow up with PCP for further information. Medications: New cephalexin 500 mg PO Q6H 28 caps 0RF epinephrine for 2 doses; call 911 0.3 mg (0.3 mL) IM Q15M PRN 2 ea 0RF anaphylaxis Coding Level of Care Code Est Pt Level 3 (38552) Diagnoses Bee sting reaction, accidental or unintentional, initial encounter T63.441A Encounter type: initial encounter Injury intent: accidental or unintentional
--- OUTSIDE RECORDS SUMMARY | 2025-02-28 09:45 | XMS_ITS | Patient Health Record ---
Author Organization [facility] Address [address] [place] [address] Care Team Providers Care Telegraph Installer Name Role Phone Yana WILSON, Racheal Primary Care Provider Justo Be [phone] Allergies No Known Allergies Results Component Value Reference Range Notes Pathology (Not yet reviewed by provider) Interpretation: Performing Lab:[facility], [address] [place] [phone] Notes/Report: Reason For Referral No Information Medications Medication SIG (Take, Route, Fr equency, Duration) Notes Start Date End Date Status Lotensin 10 MG 1 tablet Orally Once a day for 30 day(s) Active Vitamin D3 1000 UNIT 1 capsule Orally On ce a day for 30 day(s) Active Immunizations Vaccine Route Administration Date Status Comme nts Influenza Unknown 04/19/2018 Administered Social History Tobacco Use: Social History Observation Description Date Details (start date - stop date) Never Smoker NA - NA Tobacco Use/Smoking Question Answer Notes Patient is [...] Never (0 point) Points 4 Interpretation Positive Section Notes: Nonsmoker; 1 drink every day Nonsmoker; 1 drink every day Problems Problem Type SNOMED Code ICD Code Onset Dates Problem Status W/U Status Risk Notes Problem 146460666 Encounter for screening for malignant neoplasm of colon (Z12.11) Active confirmed Problem History of polyp of colon (situation) (825614578) Personal history of colonic polyps (Z86.010) Active confirmed Problem 665784129022128 Preprocedural examination (Z01.818) Active confirmed Problem Family history of malignant neoplasm of gastrointestinal tract (291590373) Family history of colon cancer in mother (Z80.0) Active confirmed Vital Signs Blood pressure diastolic 11 mm Hg 10/03/2024 Height 59 in 10/03/2024 Blood pressure systolic 111 mm Hg 10/03/2024 Weight 110 lbs 10/03/2024 BMI 22.21 kg/m2 10/03/2024 Procedures Procedure Date Ordered Date Performed Result Body Sit e COLONOSCOPY 10/03/2024 N/A Encounters Encounter Location Date Provider Diagnosis [facility] [facility] Outpatient [address] [place] [id number] 01/15/2025 Justo Beaver [facility] [address] [place] [phone] 10/03/2024 Justo Beaver Encounter for screening for malignant neoplasm of colon Z12.11 ; Preprocedural examination Z01.818 ; Personal history of colonic polyps Z86.010 and Family history of colon cancer in mother Z80.0 [facility] [address] [place] [phone] 04/29/2024 Justo Beaver Assessments Encounter Date Diagnosis (ICD Code) Assessment Notes Treatment Notes Treatment Clinical Notes Section Notes 10/03/2024 Encounter for screening for malignant neoplasm of colon (ICD-10 - Z12.11) Overall, Lori appears quite well. Given her age, excellent clinical appearance, history of a colonoscopy with tubular adenomas removed over 5 years ago, and family history of colon cancer, I did recommend a follow-up colonoscopy for further screening purposes. We did review the rationale for this in regard to colorectal cancer prevention. Full consent has been obtained for this, including risks of bleeding and perforation. The procedure will be done with monitored anesthesia care. Lori was very comfortable with this plan. Thank you again for allowing me to participate in Lori's care. I shall continue to keep you advised of her progress. 10/03/2024 Preprocedural examination (ICD-10 - Z01.818) Overall, Lori appears quite well. Given her age, excellent clinical appearance, history of a colonoscopy with tubular adenomas removed over 5 years ago, and family history of colon cancer, I did recommend a follow-up colonoscopy for further screening purposes. We did review the rationale for this in regard to colorectal cancer prevention. Full consent has been obtained for this, including risks of bleeding and perforation. The procedure will be done with monitored anesthesia care. Lori was very comfortable with this plan. Thank you again for allowing me to participate in Lori's care. I shall continue to keep you advised of her progress. 10/03/2024 Personal history of colonic polyps (ICD-10 - Z86.010) Overall, Lori appears quite well. Given her age, excellent clinical appearance, history of a colonoscopy with tubular adenomas removed over 5 years ago, and family history of colon cancer, I did recommend a follow-up colonoscopy for further screening purposes. We did review the rationale for this in regard to colorectal cancer prevention. Full consent has been obtained for this, including risks of bleeding and perforation. The procedure will be done with monitored anesthesia care. Lori was very comfortable with this plan. Thank you again for allowing me to participate in Lori's care. I shall continue to keep you advised of her progress. 10/03/2024 Family history of colon cancer in mother (ICD-10 - Z80.0) Overall, Lori appears quite well. Given her age, excellent clinical appearance, history of a colonoscopy with tubular adenomas removed over 5 years ago, and family history of colon cancer, I did recommend a follow-up colonoscopy for further screening purposes. We did review the rationale for this in regard to colorectal cancer prevention. Full consent has been obtained for this, including risks of bleeding and perforation. The procedure will be done with monitored anesthesia care. Lori was very comfortable with this plan. Thank you again for allowing me to participate in Lori's care. I shall continue to keep you advised of her progress. Plan Of Treatment Pending Test Test Name Order Date COLONOSCOPY 10/03/2024 Pathology 01/15/2025 Future Test Test Name Order Date COLONOSCOPY 03/12/2019 Insurance Providers Payer Name Payer Address Payer Phone Subscriber Number Group Number Insured Name Patient Relationship to Insured Coverage Start Date Coverage End Date [facility] [address] [place] [address] [phone] [id number] LORI TEJEDA Self - patient is the insured Medical (General) History Medical History History ICD Code Denies [place],DM,CVA,Lung disease,renal dise ase Hypertension Neg. screening colonoscopy in 07/2007 Screening colonoscopy in Apr revealed 2 small tubular adenomas that were removed Surgical History Surgery Date(Month/Year) section x 2 cholecystectomy
== END 2025-02-28 09:49 | disposition home or self-care (01) ==
PROVIDERS: PCP Internal Medicine; Visit Provider Physician Assistant
DX: T63.441A Toxic effect of venom of bees, accidental (unintentional), initial encounter (principal)

== ENCOUNTER → 2025-02-28 08:55 | Outpatient (BNVA) | payer MEDICARE, SELFPAY | PROVIDERS: PCP Internal Medicine; Visit Provider Physician Assistant | DX: T63.441A Toxic effect of venom of bees, accidental (unintentional), initial encounter (principal); Y92.9 Unspecified place or not applicable | CPT/HCPCS: 99212 ==

== ENCOUNTER 2025-03-06 07:47 | Outpatient (AMB) | payer MEDICARE, SELFPAY ==
--- OUTSIDE RECORDS SUMMARY | 2024-06-11 06:10 | XMS_ITS ---
Author Organization [facility] Address [address] [place] [address] Care Team Providers Care Mix Crusher Operator Name Role Phone Yana WILSON, Racheal Primary Care Provider Justo Be [phone] REASON FOR VISIT Patient presents today for a recall colonoscopy Encounters Encounter Location Date Provider Diagnosis [facility] [address] [address] 06/11/2024 Justo Beaver Plan Of Treatment No Information Progress Notes * NUVIA TEJEDA LDOB:1954 (70 yo F)Acc No.[id number]:06/11/2024 Progress Notes Patient: NUVIA CARUSO Provider: Tim Beaver MD :1955 A ge:69 Y S ex:Female Date:06/11/2024 Address:[address] [place], [place] [id number] Pcp:Racheal Millan MD Subjective: * Chief Complaints: [...] 08/12/2023 Generated for Printi ng/Faxing/eTransmitting on: 0 03/06/2025 07:51 AM EDT
--- OUTSIDE RECORDS SUMMARY | 2025-01-15 03:30 | XMS_ITS ---
Author Organization [facility] Address [address] [place] [phone] Care Team Providers Care Market Gardener Name Role Phone Yana WILSON, Racheal Primary Care Provider Justo Be [phone] REASON FOR VISIT screening,hx polyps Encounters Encounter Location Date Provider Diagnosis [facility] [place] [address] [place] [phone] 01/15/2025 Justo Beaver Plan Of Treatment No Information Progress Notes * NUVIA TEJEDA LDOB:1954 (70 yo F)Acc No.[id number]:01/15/2025 COLON WITH MAC Patient: NUVIA CARUSO Provider: Tim Beaver MD :1955 A ge:70 Y S ex:Female Date:01/15/2025 Address:[address] [place], [place] [phone] Pcp:Racheal Millan MD Subjective: * Chief Complaints: * 1 . Screening,hx polyps. * Medical History: Objective: * Vitals: Assessment: Plan: * Treatment: * * The named appointment provid er may or may not be the originator of this progress note, and it is not deemed complete until electronically signed by the appointment provider. Sign off status: Pending * Provider: Tim Beaver MD Date: 0 01/15/2025 Generated for Printi ng/Faxing/eTransmitting on: 0 03/06/2025 07:51 AM EDT
--- OUTSIDE RECORDS SUMMARY | 2025-03-06 07:51 | XMS_ITS | Patient Health Record ---
Author Organization [facility] Address [address] [place] [address] Care Team Providers Care Vegetable Trimmer Name Role Phone Yana WILSON, Racheal Primary Care Provider Justo Be [phone] Allergies No Known Allergies Results Component Value Reference Range Notes Pathology (Not yet reviewed by provider) Interpretation: Performing Lab:[facility], [address] [place] [phone] Notes/Report: Reason For Referral No Information Medications [...] Problem Status W/U Status Risk Notes Problem [id number] Encounter for screening for malignant neoplasm of colon (Z12.11) Active confirmed Problem History of polyp of colon (situation) (732529241) Personal history of colonic polyps (Z86.010) Active confirmed Problem [id number] Preprocedural examination (Z01.818) Active confirmed Problem Family history of malignant neoplasm of gastrointestinal tract (259122477) Family history of colon cancer in mother (Z80.0) Active confirmed Vital Signs Blood pressure diastolic 11 mm Hg 10/03/2024 Height 59 in 10/03/2024 Blood pressure systolic 111 mm Hg 10/03/2024 Weight 110 lbs 10/03/2024 BMI 22.21 kg/m2 10/03/2024 Procedures Procedure Date Ordered Date Performed Result Body Sit e COLONOSCOPY 10/03/2024 N/A Encounters Encounter Location Date Provider Diagnosis [facility] Outpatient [address] [place] [id number] 01/15/[address] [facility] [address] [place] [phone] 10/03/2024 Justo Beaver Encounter for screening for malignant neoplasm of colon Z12.11 ; Preprocedural examination Z01.818 ; Personal history of colonic polyps Z86.010 and Family history of colon cancer in mother Z80.0 [facility] [address] [place] [phone] 04/29/2024 Justo Beaver Assessments Encounter Date Diagnosis [...] Insured Coverage Start Date Coverage End Date [facility] [address] [place] [address] [id number] LORI TEJEDA Self - patient is the insured Medical (General) History Medical History History ICD Code Denies [place],DM,CVA,Lung disease,renal dise ase Hypertension Neg. screening colonoscopy in 07/2007 Screening colonoscopy in Apr revealed 2 small tubular adenomas that were removed Surgical History Surgery Date(Month/Year) section x 2 cholecystectomy
--- NOTE | 2025-03-06 07:54 | MHC.PC.OV ---
Vital Signs 03/06/25 08:07 Height 4 ft 10.5 in Weight 110 lb BMI 22.6 BP 132/80 Blood Pressure Location Rt brachial Position Sitting Respiration 15 Pulse 82 Pulse Source Pulse Oximeter Temp 98.2 F Temp Source Oral Pulse Oximetry (%) 98 Oxygen Delivery Method Room Air Intake Visit Reasons: PE Intake Note: Pt is here today for her PE: Last mammogram 07/09/24, bone density scan 07/09/24, colonoscopy 01/15/25 Allergies No Known Allergies (No Known Allergies*) Allergy (Verified 03/06/25 08:24) Medication List - Last Reconciled 03/06/25 by Racheal Millan MD benazepril 5 mg PO DAILY cholecalciferol (vitamin D3) 25 mcg PO DAILY epinephrine 0.3 mg (0.3 mL) IM Q15M PRN Tobacco use date assessed: 03/06/25 Last assessed Fall Risk: 03/06/25 Dental Screening Dental Screen Date: 03/06/25 Did you have a dental visit in the last 12 months?: Yes Did you have a dental problem in the last 6 months where you did not have access to dental care?: No Was dental information given to patient?: Patient has dentist HPI PE HPI Details - The patient is a 70-year-old female presenting today for physical exam - Osteopenia: The patient has a history of osteopenia, with bone density done this year showing stable osteopenia since 2019. No history of fracture. The patient has not been engaging in weight-bearing exercises regularly, which is recommended to improve bone health. - Precancerous colon polyps: The patient had a colonoscopy earlier this year, which revealed two precancerous polyps, repeat colonoscopy is recommended in five years due to the findings and family history of colon cancer. 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 She has been advised to carry an Epipen for emergencies. - Hypertension: The patient is on benazepril for hypertension management, with blood pressure currently well-controlled. -sees [facility] for her routine pelvic exam and Pap smear, up-to-date with the breast cancer screening [facility] Medical History Osteopenia of multiple sites Tubular adenoma of colon Essential hypertension Surgical History Hx of section History of laparoscopic cholecystectomy Hx of colonoscopy Social History Household Members: Spouse Housing: House Are you a primary urgent care physician to a significant other at home: No Do you presently have visiting nurse or other home services: No Alcohol intake: current Patient Tobacco Use Status: Never used Tobacco e-Cigarette/Vaping Use: Never Used Second Hand Smoke Exposure: Yes ( smokes cigars in the deck) service: No Current occupational status: retired Current occupational exposures/hazards: No Cognitive needs: No Hearing needs: No Vision needs: Yes Female Reproductive History Menstrual Other: Goes to [facility] for her routine Pap and pelvic exam, Questionnaire PHQ-9 Over the last 2 weeks, how often have you been bothered by any of the following problems? Depression Screening Interpretation: Negative Depression Screening Done: Yes Source: Developed by Drs. Justo Warren, Cornelia Harrington, Juan Garsia and colleagues, with an educational gisell from [employer]. Thrive Questionnaire Date Thrive assessed: 02/27/25 I am a: Patient What is your living situation today?: I have a steady place to live Within the past 12 months, did the food you bought not last and you didn't have the money to get more?: Never true Within the past 12 months, did you worry whether your food would run out before you got money to buy more?: Never true Do you have trouble paying for medicines?: No Do you have trouble getting transportation to medical appointments?: No Do you have trouble paying your heating and electricity bill?: No Do you have trouble taking care of your child, family member or friend?: No Do you have trouble with day-to-day activities such as bathing, preparing meals, shopping, managing finances, etc.?: No Are you currently unemployed and looking for a job?: No Are you interested in more education?: No THRIVE Score: 0 AUDIT C Alcohol Use Questionnaire (AUDIT-C) 1. How often do you have a drink containing alcohol?: 4 or more times a week 2. How many drinks containing alcohol do you have on a typical day when you are drinking?: 1 or 2 3. How often do you have six or more drinks on one occasion?: Never Total Score: 4 Score Reviewed/Action Taken: Yes SHEEBA-7 AMB Questionnaire SHEEBA-7 Date SHEEBA - 7 assessed: 03/06/25 Feeling nervous, anxious, or on edge: 0 = Not at all Not being able to stop or control worryin = Not at all Worrying too much about different things: 0 = Not at all Trouble relaxin = Not at all Being so restless that it is hard to sit still: 0 = Not at all Becoming easily annoyed or irritable: 0 = Not at all Feeling afraid as if something awful might happen: 0 = Not at all Total SHEEBA-7 score (0-4 normal; 5-9 mild; 10-14 moderate; 15-21 severe): 0 Source: Developed by Drs. Justo Warren, Cornelia Harrington, Juan Garsia and colleagues, with an educational gisell from [employer]. SHEEBA-7 Assessment Billing SHEEBA-7 Assessment Tool: SHEEBA-7 Assessment 06089 Review of Systems Const Reports no additional complaints Eyes Details: Sees [facility] Reports requires corrective lenses ENT Denies nasal congestion, Denies post nasal drip and Denies sore throat Card Denies dyspnea and Denies dyspnea on exertion Resp Reports as per HPI, Denies pain on inspiration, Denies dyspnea and Denies dyspnea on exertion GI Denies abdominal pain, Denies melena, Denies hematochezia, Denies change in bowel habits, Denies heartburn and Denies nausea Denies hematuria, Denies dysuria, Denies urinary incontinence and Denies urinary hesitancy Musc Denies back pain, Denies myalgias, Denies arthralgias, Denies joint swelling, Denies muscle cramps and Denies muscle weakness Skin/Breast Details: Sees [facility] Denies breast pain, Denies breast mass and Denies rash Neuro Reports no additional complaints Psych Reports no additional complaints Endo Reports no additional complaints Michele/Lymph Reports no additional complaints Aller/Immun Reports no additional complaints Physical exam (Primary Care) Vital Signs: Last Vital Signs Temp 98.2 F 03/06/25 08:07 Pulse 82 03/06/25 08:07 Resp 15 03/06/25 08:07 BP 132/80 03/06/25 08:07 Pulse Ox 98 03/06/25 08:07 Oxygen Delivery Method Room Air 03/06/25 08:07 BMI result Body Mass Index 22.6 Tobacco/Smoking Status: Tobacco use Status Tobacco use date assessed 03/06/25 03/06/25 07:56 Patient Tobacco Use Status Never used Tobacco 03/06/25 07:56 e-Cigarette/Vaping Use Never Used 03/06/25 07:56 Depression Screening Interpretation: Negative Thrive Assessment: Date of Thrive Assessment Date Thrive assessed 02/27/25 03/06/25 07:56 Const General: no acute distress Orientation/consciousness: patient oriented x3 HENMT Ears: external ears normal, TM's normal bilaterally and EAC's normal General nose exam: Normal external nose present Face and sinus: Yes face symmetric Mouth: oropharynx normal and moist mucous membranes Eyes Conjunctivae: conjunctivae normal Sclerae: sclerae normal Pupils: Equal, round and reactive pupils present EOM: EOMs intact bilaterally Neck Neck: Yes full ROM and Yes no lymphadenopathy Chest Chest palpation & inspection: normal inspection of the chest Breast/axilla inspection: normal inspection of the breasts Breast/axilla palpation: normal palpation of the breasts Resp Effort & Inspection: normal respiratory effort and able to speak in complete sentences Auscultation: clear to auscultation bilaterally Cardio Rate: regular rate Rhythm: regular rhythm Heart sounds: S1 normal heart sound present and S2 normal heart sound present GI Inspection: Yes normal to inspection Palpation (GI): Soft to palpation Auscultation: normal bowel sounds General: Yes deferred (Goes to her OB at [facility]) Back/Spine/Pelvis Back: No back tenderness Skin General skin exam: no rashes or lesions noted Neuro General: patient oriented x3, gait normal, moves all extremities, no focal motor deficits and CN's II-XI intact bilaterally Cranial nerves: Yes Equal, round and reactive pupils present Cognition (Neuro): normal cognition Extrem General: Yes full ROM, Yes no joint enlargement, Yes no clubbing, cyanosis or edema and Yes normal gait Psych Appearance: grossly normal and well kempt Mental Status: mental status grossly normal Speech and movement: Normal speech and movement present Affect: normal affect Coding Level of Care Code Est Pt Prev Care >65y(07009) Diagnoses Annual visit for general adult medical examination with abnormal findings Z00.01 Essential hypertension I10 Osteopenia of multiple sites M85.89 History of adenomatous polyp of colon Z86.010 Additional Codes SHEEBA-7 Assessment Billing - SHEEBA-7 Assessment Tool: SHEEBA-7 Assessment 09177 ([id number]) Assessment & Plan Assessment & Plan (1) Annual visit for general adult medical examination with abnormal findings: Code(s): Z00.01 - Encounter for general adult medical examination with abnormal findings Category: Medical Plan: Will check appropriate labs. Continue regular dental visit every 6 months and regular eye exams, at least every 2 years. Take adequate calcium in diet and vitamin-D 3 at 2000 IU per cap once a day, in addition to weight-bearing exercises to help maintain good muscle tone and weight control. Repeat bone density in 2 years. Instructed to do self-breast exam, and continue to get yearly mammogram, up-to-date . Up-to-date with her vaccines. Colonoscopy screening is up-to-date (2) Essential hypertension: Code(s): I10 - Essential (primary) hypertension Category: Medical (3) Osteopenia of multiple sites: Code(s): M85.89 - Other specified disorders of bone density and structure, multiple sites Category: Medical (4) History of adenomatous polyp of colon: Code(s): Z86.010 - Personal history of colon polyps Category: Medical Plan During the visit, we discussed the importance of regular weight-bearing exercises to manage osteopenia and the need for a follow-up colonoscopy in five years due to the presence of precancerous polyps. I advised the patient to carry an Epipen for her bee sting allergy and to continue monitoring her blood pressure as it is well-controlled with benazepril. Orders: Orders Aspartate Amino Transferase 03/06/25 I10 - Essential (primary) hypertension, M85.89 - Other specified disorders of bone density and structure, multiple sites, Z00.01 - Encounter for general adult medical examination with abnormal findings, Z13.220 - Encounter for screening for lipoid disorders, Z86.010 - Personal history of colon polyps Alanine Aminotransferase 03/06/25 I10 - Essential (primary) hypertension, M85.89 - Other specified disorders of bone density and structure, multiple sites, Z00.01 - Encounter for general adult medical examination with abnormal findings, Z13.220 - Encounter for screening for lipoid disorders, Z86.010 - Personal history of colon polyps Lipid Panel 03/06/25 I10 - Essential (primary) hypertension, M85.89 - Other specified disorders of bone density and structure, multiple sites, Z00.01 - Encounter for general adult medical examination with abnormal findings, Z13.220 - Encounter for screening for lipoid disorders, Z86.010 - Personal history of colon polyps Vitamin D 25-OH Total 03/06/25 I10 - Essential (primary) hypertension, M85.89 - Other specified disorders of bone density and structure, multiple sites, Z00.01 - Encounter for general adult medical examination with abnormal findings, Z13.220 - Encounter for screening for lipoid disorders, Z86.010 - Personal history of colon polyps Basic Metabolic Panel Fasting 03/06/25 I10 - Essential (primary) hypertension, M85.89 - Other specified disorders of bone density and structure, multiple sites, Z00.01 - Encounter for general adult medical examination with abnormal findings, Z13.220 - Encounter for screening for lipoid disorders, Z86.010 - Personal history of colon polyps
[2025-03-06 08:07] VITALS: BP 132/80; PULSE 82; RESP 15; TEMP 36.8; O2SAT 98; BMI 22.6
== END 2025-03-06 09:37 | disposition home or self-care (01) ==
LOC: HO.HMCC 07:48
PROVIDERS: PCP Internal Medicine; Visit Provider Internal Medicine
DX: Z00.01 Encounter for general adult medical examination with abnormal findings (principal); I10 Essential (primary) hypertension; M85.89 Other specified disorders of bone density and structure, multiple sites; Z86.0100 Personal history of colon polyps, unspecified

== ENCOUNTER 2025-03-06 07:47 | Outpatient (REF) | payer MEDICARE, SELFPAY ==
[2025-03-06 10:42] LABS: Alanine Aminotransferase 16 U/L (0-31); Anion Gap 10 (12-20); Aspartate Amino Transferase 23 U/L (5-31); Blood Urea Nitrogen 14 mg/dL (9-16); Calcium 9.6 mg/dL (8.4-10.2); Carbon Dioxide 26 mmol/L (22-29); Chloride 106 mmol/L (96-108); Cholesterol 218 mg/dL (<200); Estimated Glomerular Filt Rate > 60; HDL Cholesterol 54 mg/dL (>40); Potassium 4.2 mmol/L (3.3-5.1); Sodium 138 mmol/L (135-145); Triglycerides 77 mg/dL (<150)
== END 2025-03-06 07:48 | disposition home or self-care (01) ==
LOC: HO.HMGCLDS 07:47
PROVIDERS: PCP Internal Medicine; Visit Provider Internal Medicine
DX: Z00.01 Encounter for general adult medical examination with abnormal findings (principal); Z13.220 Encounter for screening for lipoid disorders; I10 Essential (primary) hypertension; M85.89 Other specified disorders of bone density and structure, multiple sites; Z86.0100 Personal history of colon polyps, unspecified; Z79.899 Other long term (current) drug therapy
CPT/HCPCS: 36415; 80048; 80061; 82306; 84450; 84460; 96127; 99397